=== PATIENT | male | born 1965 | race Caucasian/White ===

== ENCOUNTER 2022-02-14 21:01 | Emergency (ER) | payer OTHER, SELFPAY ==
--- NOTE | ~2022-02-14 | XR_ITS ---
EXAMINATION: XR chest 2V Exam Date/Time: 02/14/2022 21:35 CDT HISTORY: cough, fever, NAUSEA, CONGESTION, HX OF PNEUMONIA Comparison: None available. RESULT: Lines, tubes, and devices: None. Lungs and pleura: Clear. Cardiomediastinal silhouette: Normal. Other: No acute osseous or upper abdominal finding. IMPRESSION: No acute cardiopulmonary process. Reviewed, dictated and finalized at location K.
[2022-02-14 21:32] VITALS: BP 128/74; PULSE 77; RESP 16; TEMP 36.1; O2SAT 98
--- NOTE | 2022-02-14 21:39 | PC.NURSE ---
Patient in xray.
[2022-02-14 22:23] VITALS: O2SAT 98
--- NOTE | 2022-02-14 22:29 | ED.URI ---
HPI - URI/Sore Throat General Chief Complaint: Upper Respiratory Infection Stated Complaint: COVID+, chills, cough Time Seen by Provider: 02/14/22 21:07 History of Present Illness HPI Narrative: 56-year-old male presents the emergency room for evaluation of cough and congestion. Patient states he took 2 at home COVID tests earlier today, and they both came back positive. Patient denies any shortness of breath or difficulty breathing. Denies fever or body aches. Related Data Allergies Allergy/AdvReac Type Severity Reaction Status Date / Time latex Allergy Unknown SKIN Verified 02/14/22 22:36 IRRITATION codeine AdvReac Unknown NAUSEA Verified 02/14/22 22:36 Review of Systems Review of Systems: CONSTITUTIONAL: Denies fever, chills, or sweats. EYES: Denies visual changes, redness, or discharge. ENT: Reports sinus congestion and postnasal drip CARDIOVASCULAR: Denies chest pain, palpitations, or edema. RESPIRATORY: Reports cough GASTROINTESTINAL: Denies abdominal pain, nausea, vomiting, or diarrhea. GENITOURINARY: Denies dysuria or hematuria. SKIN: Denies rash or itching. MUSCULOSKELETAL: Denies back pain, joint pain, or myalgia. NEUROLOGIC: Denies headache, numbness, dizziness, or weakness. PSYCHIATRIC: Denies anxiety or depression. Exam Narrative: GENERAL: Well-appearing, well-nourished, no physical limitations, and in no acute distress. HEAD: Normocephalic, atraumatic. EYES: Conjunctivae normal, PERRLA and EOMI. ENT: External nose normal, Nares clear, no rhinorrhea or epistaxis. Mucous membranes moist. Oropharynx without tonsillar hypertrophy exudate or other lesions. External ears normal, bilateral TMs normal bilaterally NECK: Supple. CHEST: Clear to auscultation. No respiratory distress. No wheezes rales or rhonchi. No tenderness. HEART: Regular rate and rhythm. No murmur heard. Normal peripheral pulses. EXTREMITIES: Normal range of motion. No edema. No clubbing or cyanosis SKIN: Warm, dry, no rash. No noted wounds NEURO: No focal deficits. Alert and oriented x3. MAEW. CN's II-XI intact bilaterally, normal gait PSYCH: Cooperative. Normal mood and affect. Course Vital Signs Vital signs: Vital Signs Temperature 36.1 C L 02/14/22 21:32 Pulse Rate 77 02/14/22 21:32 Respiratory Rate 16 02/14/22 21:32 Blood Pressure 128/74 02/14/22 21:32 Pulse Oximetry 98 02/14/22 21:32 Oxygen Delivery Room Air 02/14/22 21:32 Temperature 36.1 C L 02/14/22 21:32 Pulse Rate 77 02/14/22 21:32 Respiratory Rate 16 02/14/22 21:32 Blood Pressure 128/74 02/14/22 21:32 Pulse Oximetry 98 02/14/22 22:23 Oxygen Delivery Room Air 02/14/22 22:23 Discharge Plan Discharge Clinical Impression: COVID Patient Disposition: Home, Self-Care Condition: Stable Instructions: Antibiotic Form, COVID-19 (Coronavirus Disease 2019) (ED) Prescriptions: New benzonatate 100 mg capsule 100 mg PO BID PRN (Reason: cough) Qty: 30 0RF pseudoephedrine HCl 120 mg tablet extended release 120 mg PO Q12H Qty: 30 0RF benzonatate 100 mg capsule 100 mg PO BID PRN (Reason: cough) Qty: 30 0RF pseudoephedrine HCl 120 mg tablet extended release 120 mg PO Q12H Qty: 30 0RF Follow-up/Referrals: Diane,Bony Walters MD [Primary Care Provider] - Time of Disposition: 22:37
[2022-02-14 22:49] VITALS: PULSE 67; RESP 16; O2SAT 98
== END 2022-02-14 22:49 | disposition home or self-care (01) ==
LOC: ANHED 22:46
PROVIDERS: Emergency Provider Nurse Practitioner Family; PCP Internal Medicine
DX: U07.1 COVID-19 (principal)
CPT/HCPCS: 71046; 99283